=== PATIENT | female | born 1955 | race Native Hawaiian/Other Pacific Islander ===

== ENCOUNTER 2016-09-04 17:44 | Outpatient (CLI) | payer OTHER ==
[~2016-09-04 17:44] MED LIST: ACID REDUCER150 MG OR; CARAFATE1 GM PO
== END 2016-09-04 17:46 | disposition short-term general hospital (02) ==
LOC: AMB 17:44
DX: R06.09 Other forms of dyspnea (principal); R06.2 Wheezing
CPT/HCPCS: A0425; A0429

== ENCOUNTER 2016-09-04 17:50 | Emergency (ER) | payer OTHER ==
[~2016-09-04] VITALS: Ht 172.7 cm; Wt 113.4 kg
[2016-09-04 18:24] LABS: PLATELET COUNT 177 K/uL (152-353)
[2016-09-04 18:36] LABS: POTASSIUM 3.3 mmol/L (3.6-5.2); SODIUM 133 mmol/L (136-145)
[2016-09-04 19:18] VITALS: BP 138/60; TEMP 99.5
== END 2016-09-04 19:19 | disposition home or self-care (01) ==
LOC: ED 17:50
DX: I51.7 Cardiomegaly (principal); I87.8 Other specified disorders of veins; I50.9 Heart failure, unspecified
CPT/HCPCS: 36415; 80053; 85027; 87081; 87804; 87880; 99283

== ENCOUNTER 2016-09-05 17:42 | Outpatient (CLI) | payer OTHER | END 2016-09-05 18:42 | disposition home or self-care (01) | LOC: LAB 17:42 | DX: R06.09 Other forms of dyspnea (principal) | CPT/HCPCS: 83880; 84484 ==

== ENCOUNTER 2019-09-29 07:14 | Emergency (ER) | payer OTHER ==
[~2019-09-29] VITALS: Ht 165.1 cm; Wt 124.7 kg
[2019-09-29 07:17] VITALS: BP 159/78; TEMP 97.9
[2019-09-29 08:00] LABS: PLATELET COUNT 240 K/uL (152-353)
[2019-09-29 08:04] LABS: POTASSIUM 3.6 mmol/L (3.6-5.2)
== END 2019-09-29 08:11 | disposition home or self-care (01) ==
LOC: ED 07:14
PROVIDERS: Emergency Medicine
DX: R10.84 Generalized abdominal pain (principal)
CPT/HCPCS: 36415; 80053; 82150; 83690; 85027; 99283

== ENCOUNTER 2020-03-13 15:33 | Emergency (ER) | payer OTHER ==
[~2020-03-13] VITALS: Ht 165.1 cm; Wt 124.7 kg
[2020-03-13 15:33] VITALS: TEMP 98.6
[2020-03-13 16:51] LABS: PLATELET COUNT 223 K/uL (152-353)
[2020-03-13 17:02] LABS: POTASSIUM 3.4 mmol/L (3.6-5.2)
[2020-03-13 19:20] VITALS: BP 158/76
== END 2020-03-13 19:22 | disposition home or self-care (01) ==
LOC: ED 15:33
PROVIDERS: Family Medicine
DX: K80.80 Other cholelithiasis without obstruction (principal); E87.6 Hypokalemia; N39.0 Urinary tract infection, site not specified; K29.70 Gastritis, unspecified, without bleeding
CPT/HCPCS: 36415; 80053; 81000; 82150; 83690; 85027; 87077; 87086; 87088; 87186; 96360; 96375; 99284; J1885; J2405

== ENCOUNTER 2020-04-26 14:44 | Emergency (ER) | payer OTHER ==
[~2020-04-26] VITALS: Ht 165.1 cm; Wt 124.7 kg
[2020-04-26 15:00] VITALS: TEMP 99.6
[2020-04-26 15:59] LABS: PLATELET COUNT 253 K/uL (152-353)
[2020-04-26 16:08] LABS: POTASSIUM 3.6 mmol/L (3.6-5.2)
[2020-04-26 18:07] VITALS: BP 116/69
== END 2020-04-26 18:09 | disposition home or self-care (01) ==
LOC: ED 14:44
PROVIDERS: Family Medicine
DX: K80.80 Other cholelithiasis without obstruction (principal); K59.09 Other constipation; K21.9 Gastro-esophageal reflux disease without esophagitis
CPT/HCPCS: 36415; 80053; 81000; 82150; 83605; 83690; 85027; 96374; 96375; 99284; J1885; J2405

== ENCOUNTER 2020-04-29 14:33 | Emergency (ER) | payer OTHER ==
[~2020-04-29] VITALS: Ht 165.1 cm; Wt 124.7 kg
[2020-04-29 15:04] LABS: PLATELET COUNT 236 K/uL (152-353)
[2020-04-29 15:18] LABS: POTASSIUM 3.1 mmol/L (3.6-5.2)
[2020-04-29 15:28] LABS: PARTIAL THROMBOPLASTIN TIME 23.7 SECONDS (24.5-33.6)
[2020-04-29 16:13] VITALS: BP 144/74; TEMP 99.2
== END 2020-04-29 16:15 | disposition home or self-care (01) ==
LOC: ED 14:33
PROVIDERS: Hospitalist
DX: R10.84 Generalized abdominal pain (principal); G89.29 Other chronic pain; K21.9 Gastro-esophageal reflux disease without esophagitis; L03.311 Cellulitis of abdominal wall
CPT/HCPCS: 80053; 80320; 82150; 83690; 85027; 85610; 85730; 99283

== ENCOUNTER 2020-08-15 00:18 | Emergency (ER) | payer OTHER ==
[~2020-08-15] VITALS: Ht 165.1 cm; Wt 170.1 kg
[2020-08-15 01:01] VITALS: TEMP 98.8
[2020-08-15 02:06] LABS: POTASSIUM 4.1 mmol/L (3.6-5.2); SODIUM 136 mmol/L (136-145)
[2020-08-15 02:17] LABS: PLATELET COUNT 249 K/uL (152-353)
[2020-08-15 05:25] VITALS: BP 113/64
== END 2020-08-15 05:25 | disposition short-term general hospital (02) ==
LOC: ED 01:01
PROVIDERS: Family Medicine
PROC: 0T9B70Z Drainage of Bladder with Drainage Device, Via Natural or Artificial Opening (ICD-10-PCS; principal; 2020-08-15)
PROC: 0BH17EZ Insertion of Endotracheal Airway into Trachea, Via Natural or Artificial Opening (ICD-10-PCS; 2020-08-15)
PROC: 5A1935Z Respiratory Ventilation, Less than 24 Consecutive Hours (ICD-10-PCS; 2020-08-15)
DX: J96.90 Respiratory failure, unspecified, unspecified whether with hypoxia or hypercapnia (principal); R40.4 Transient alteration of awareness; Z11.59 Encounter for screening for other viral diseases
CPT/HCPCS: 31500; 36415; 36600; 51702; 80053; 80307; 81000; 82805; 83880; 84484; 85027; 85379; 85610; 85730; 87077; 87086; 87088; 87186; 87635; 93005; 96360; 96361; 96365; 96366; 96375; 96376; 99285; J0330; J2250; J3490; U0003